=== PATIENT | female | born 1965 | race Caucasian/White ===

== ENCOUNTER 2020-05-11 20:24 | Emergency (ER) | payer OTHER ==
[~2020-05-11] VITALS: Ht 157.5 cm; Wt 83.9 kg
[2020-05-11] MEDS ORDERED: YUVAFEM10 MCG VAG (20:46)
[2020-05-11] MEDS ORDERED: ENDOMETRIN100 MG VAG (20:46)
[2020-05-11] MEDS ORDERED: LAMOTRIGINE25 MG PO (20:47)
[2020-05-11] MEDS ORDERED: LEXAPRO20 MG PO (20:47)
== END 2020-05-11 22:05 | disposition home or self-care (01) ==
LOC: ER 20:24
DX: G43.809 Other migraine, not intractable, without status migrainosus (principal)

== ENCOUNTER 2023-12-29 23:05 | Emergency (ER) | payer OTHER ==
[~2023-12-29] VITALS: Ht 157.5 cm; Wt 90.7 kg
[~2023-12-29 23:05] MED LIST: ENDOMETRIN100 MG VAG; LAMOTRIGINE25 MG PO; LEXAPRO20 MG PO; YUVAFEM10 MCG VAG
[2023-12-30] MEDS ORDERED: PROVERA2.5 MG PO (00:18)
[2023-12-30] MEDS ORDERED: METOCLOPRAMIDE HCL 5 MG/ML VIAL IM STA (02:07)
[2023-12-30] MEDS ORDERED: HYOSCYAMINE SULFATE 0.125 MG TAB.SUBL SL ONE (02:15)
== END 2023-12-30 03:44 | disposition home or self-care (01) ==
LOC: ER 23:05
DX: K30 Functional dyspepsia (principal); K29.70 Gastritis, unspecified, without bleeding; Z88.8 Allergy status to other drugs, medicaments and biological substances